=== PATIENT | female | born 2005 | race American Indian/Alaskan Native ===

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

== ENCOUNTER 2024-05-24 08:00 | Outpatient (AMB) | payer OTHER, SELFPAY ==
[2024-05-24 08:01] VITALS: BP 118/70; PULSE 91; TEMP 36.6; O2SAT 98; BMI 32.8
--- NOTE | 2024-05-24 08:01 | MHC.OFFWIV ---
Intake Vital Signs 05/24/24 08:01 Height 5 ft Weight 168 lb BMI 32.8 BP 118/70 Blood Pressure Location Rt brachial Position Sitting Pulse 91 Pulse Source Pulse Oximeter Temp 97.8 F Temp Source Oral Pulse Oximetry (%) 98 Oxygen Delivery Method Room Air Intake Visit Reasons: EP ?UTI Intake Note: Pt is here today for a walk in visit. Pt c/o frequent urination burning and itching for couple a days. Pt also c/o slight pelvic pain. Patient Tobacco Use Status: Never used Tobacco Allergies No Known Allergies Allergy (Verified 05/24/24 08:05) HPI HPI Comments History of Present Illness Details History of Present Illness The patient is a 19-year-old female presenting with symptoms consistent with a Urinary Tract Infection (UTI). - Symptoms started approximately 2-3 days ago, characterized by frequent urination during nighttime with minimal urinary output. - Noted new symptoms of burning and itching during urination occurring since last night. - Mild lower abdominal pain noted today. - Reports negative nitrites but positive leukocytes on home UTI test, indicating potential infection. - Denies hematuria, fever, or flank pain. - Attempted symptom management by reducing fluid intake without improvement in nocturia. - No known medication allergies. - Denies recent weight loss or increased thirst, mitigating suspicion of diabetes mellitus. - Denies possibility of . Physical Exam General: Cooperative, healthy appearing, comfortable, no acute distress and well developed Orientation: Patient oriented x3 Limitations: No limitations Head: Normal to inspection Ears: Hearing grossly normal bilaterally Nose: Normal external nose present Face and sinus: Normal facial exam Eyes: Appearance normal, both eyes and all related structures Neck: Normal visual inspection and Yes full ROM Respiratory: Normal respiratory effort and able to speak in complete sentences. Skin: No rashes or lesions noted Neuro: Patient oriented x3 Extremities: Normal to inspection [facility] Social History Patient Tobacco Use Status: Never used Tobacco Review of Systems Const All systems reviewed & are unremarkable except as noted in HPI and below Physical Exam Vital Signs: Last Vital Signs Temp 97.8 F 05/24/24 08:01 Pulse 91 05/24/24 08:01 BP 118/70 05/24/24 08:01 Pulse Ox 98 05/24/24 08:01 Oxygen Delivery Method Room Air 05/24/24 08:01 BMI result Body Mass Index 32.8 Results AMB Urinalysis, Automated UA Leukoctes 0 Steven/uL Last Edit by Maria Luisa Mccray [facility] on 05/24/24 08:18 UA Nitrite Negative Last Edit by Maria Luisa Mccray [facility] on 05/24/24 08:18 UA Urobilinogen 0.2 mg/dL Last Edit by Maria Luisa Mccray [facility] on 05/24/24 08:18 UA Protein 0 mg/dL Last Edit by Maria Luisa Mccray [facility] on 05/24/24 08:18 UA pH 6.0 Last Edit by Maria Luisa Mccray [facility] on 05/24/24 08:18 UA Blood 0 Carlito/uL Last Edit by Maria Luisa Mccray [facility] on 05/24/24 08:18 UA Specific [place] 1.005 Last Edit by Maria Luisa Mccray [facility] on 05/24/24 08:18 UA Ketone Negative Last Edit by Maria Luisa Mccray [facility] on 05/24/24 08:18 UA Bilirubin 0 mg/dL Last Edit by Maria Luisa Mccray [facility] on 05/24/24 08:18 UA Glucose 0 mg/dL Last Edit by Maria Luisa Mccray [facility] on 05/24/24 08:18 Assessment & Plan Assessment & Plan (1) UTI (urinary tract infection): Code(s): N39.0 - Urinary tract infection, site not specified Qualifiers: Urinary tract infection type: acute cystitis Hematuria presence: without hematuria Qualified Code(s): N30.00 - Acute cystitis without hematuria Plan: Plan The patient will be treated empirically for a Urinary Tract Infection UTI with Cefuroxime, to be taken every 12 hours for a duration of five days, due to the clear symptomatic presentation and the positive leukocyte result on a home test, despite a negative result from an in-office urinalysis machine. This approach is to prevent any further complication such as ascending infection to the kidneys. A urine culture will not be performed for this young and otherwise healthy patient. The patient is to collect the prescription from the pharmacy and start the medication regimen as directed. Patient was informed and verbally consented to the use of an ambient scribe for clinic note documentation during this visit. Orders: Orders AMB Urinalysis Automated Today Z13.9 - Encounter for screening, unspecified Medications: New cefuroxime axetil 500 mg PO Q12H 10 tabs 0RF Coding Level of Care Code New Pt Level 3 (40494) Diagnoses Acute cystitis without hematuria N30.00 Urinary tract infection type: acute cystitis Hematuria presence: without hematuria
== END 2024-05-24 09:03 | disposition home or self-care (01) ==
PROVIDERS: Visit Provider Physician Assistant
DX: N30.00 Acute cystitis without hematuria (principal); Z13.9 Encounter for screening, unspecified

== ENCOUNTER → 2024-05-24 08:00 | Outpatient (BNVA) | payer OTHER, SELFPAY | PROVIDERS: Visit Provider Physician Assistant | DX: N30.00 Acute cystitis without hematuria (principal) | CPT/HCPCS: 81003 ==